=== PATIENT | female | born 1965 | race Native Hawaiian/Other Pacific Islander ===

== ENCOUNTER 2017-01-11 11:21 | Day surgery (SDC) | payer OTHER ==
[~2017-01-11] VITALS: Ht 30.5 cm; Wt 0.5 kg
[~2017-01-11 11:21] MED LIST: CORRECTOL100 MG OR; DULO60CA2 OR; FURO20TA67 PO; GABA300C2 PO; LISI20TA24 PO; LORCET HD 10-321 TAB PO; MELOXICAM15 MG OR; MULT VITAMI1 OR; TIZA4TAB5 PO; TRAM50TA PO; TRAZ100T OR
== END 2017-01-11 14:00 | disposition home or self-care (01) ==
LOC: OR 11:21
PROC: 0DB88ZZ Excision of Small Intestine, Via Natural or Artificial Opening Endoscopic (ICD-10-PCS; principal; 2017-01-11)
PROC: 0DB18ZZ Excision of Upper Esophagus, Via Natural or Artificial Opening Endoscopic (ICD-10-PCS; 2017-01-11)
PROC: 0DB68ZZ Excision of Stomach, Via Natural or Artificial Opening Endoscopic (ICD-10-PCS; 2017-01-11)
PROC: 0D758ZZ Dilation of Esophagus, Via Natural or Artificial Opening Endoscopic (ICD-10-PCS; 2017-01-11)
DX: K22.4 Dyskinesia of esophagus (principal); K21.0 Gastro-esophageal reflux disease with esophagitis; K22.2 Esophageal obstruction; K29.50 Unspecified chronic gastritis without bleeding; R13.19 Other dysphagia; R10.13 Epigastric pain; R14.3 Flatulence; R14.0 Abdominal distension (gaseous)
CPT/HCPCS: J2001; J2704

== ENCOUNTER 2017-04-10 13:47 | Outpatient (CLI) | payer OTHER | END 2017-04-10 14:50 | disposition home or self-care (01) | LOC: MRI 13:47 | DX: M54.2 Cervicalgia (principal); R20.0 Anesthesia of skin ==

== ENCOUNTER 2017-04-27 13:46 | Outpatient (CLI) | payer OTHER | END 2017-04-27 19:18 | disposition home or self-care (01) | LOC: MRI 13:46 | DX: M54.17 Radiculopathy, lumbosacral region (principal) ==

== ENCOUNTER 2017-07-18 09:39 | Outpatient (CLI) | payer OTHER | END 2017-07-18 19:03 | disposition home or self-care (01) | LOC: MAMMO 09:39 | DX: Z12.31 Encounter for screening mammogram for malignant neoplasm of breast (principal) ==

== ENCOUNTER 2017-08-19 18:37 | Emergency (ER) | payer OTHER ==
[~2017-08-19] VITALS: Ht 154.9 cm; Wt 121.6 kg
[2017-08-19 20:08] VITALS: BP 129/73; TEMP 97.9
== END 2017-08-19 20:10 | disposition home or self-care (01) ==
LOC: ED 18:37
DX: S00.83XA Contusion of other part of head, initial encounter (principal); W01.198A Fall on same level from slipping, tripping and stumbling with subsequent striking against other object, initial encounter; Y92.098 Other place in other non-institutional residence as the place of occurrence of the external cause
CPT/HCPCS: 96372; 99283; J1885

== ENCOUNTER 2017-11-12 16:55 | Emergency (ER) | payer OTHER ==
[~2017-11-12] VITALS: Ht 154.9 cm; Wt 122.5 kg
[2017-11-12] MEDS ORDERED: SIMV20TA2 PO (17:13)
[2017-11-12] MEDS ORDERED: PROZAC10 MG PO (17:14)
[2017-11-12] MEDS ORDERED: PANTOPRAZOLE 40MG TA PO (17:14)
[2017-11-12] MEDS ORDERED: XYZAL5 MG PO (17:15)
[2017-11-12] MEDS ORDERED: TRAZ100T PO (17:16)
[2017-11-12] MEDS ORDERED: TOVIAZ 8MG8 MG PO (17:18)
[2017-11-12] MEDS ORDERED: FLONASE AL50 MCG/ACT (17:20)
[2017-11-12] MEDS ORDERED: ALBUTEROL0.083 % IN (17:22)
[2017-11-12 19:35] VITALS: BP 131/83; TEMP 99
== END 2017-11-12 19:36 | disposition home or self-care (01) ==
LOC: ED 16:55
DX: T62.91XA Toxic effect of unspecified noxious substance eaten as food, accidental (unintentional), initial encounter (principal)
CPT/HCPCS: 96372; 99282; J2550

== ENCOUNTER 2017-12-19 09:04 | Outpatient (CLI) | payer OTHER ==
[~2017-12-19 09:04] MED LIST changes: +ALBUTEROL0.083 % IN; +FLONASE AL50 MCG/ACT; +PANTOPRAZOLE 40MG TA PO; +PROZAC10 MG PO; +SIMV20TA2 PO; +TOVIAZ 8MG8 MG PO; +TRAZ100T PO; +XYZAL5 MG PO
== END 2017-12-19 19:59 | disposition home or self-care (01) ==
LOC: CT 09:04
DX: K43.9 Ventral hernia without obstruction or gangrene (principal)
CPT/HCPCS: 36415; 82565; 84520; Q9963

== ENCOUNTER 2018-03-07 11:56 | Day surgery (SDC) | payer OTHER ==
[2018-03-07 12:23] LABS: PLATELET COUNT 392 K/uL (152-353)
[2018-03-07 12:37] LABS: POTASSIUM 3.7 mmol/L (3.6-5.2)
== END 2018-03-07 14:24 | disposition home or self-care (01) ==
LOC: OR 11:56
PROVIDERS: Internal Medicine Gastroenterology
PROC: 0DB68ZZ Excision of Stomach, Via Natural or Artificial Opening Endoscopic (ICD-10-PCS; principal; 2018-03-07)
PROC: 0DB88ZZ Excision of Small Intestine, Via Natural or Artificial Opening Endoscopic (ICD-10-PCS; 2018-03-07)
PROC: 0D758ZZ Dilation of Esophagus, Via Natural or Artificial Opening Endoscopic (ICD-10-PCS; 2018-03-07)
DX: K25.9 Gastric ulcer, unspecified as acute or chronic, without hemorrhage or perforation (principal); K29.70 Gastritis, unspecified, without bleeding; K21.0 Gastro-esophageal reflux disease with esophagitis; K22.4 Dyskinesia of esophagus; K22.2 Esophageal obstruction; R13.19 Other dysphagia; R10.13 Epigastric pain; R11.2 Nausea with vomiting, unspecified; R63.4 Abnormal weight loss
CPT/HCPCS: 80053; 85027; J2001; J2250; J2704

== ENCOUNTER 2018-07-25 10:15 | Outpatient (CLI) | payer OTHER | END 2018-07-25 19:19 | disposition home or self-care (01) | LOC: MAMMO 10:15 | DX: Z12.31 Encounter for screening mammogram for malignant neoplasm of breast (principal) ==

== ENCOUNTER 2018-08-07 08:58 | Outpatient (CLI) | payer OTHER | END 2018-08-07 21:19 | disposition home or self-care (01) | LOC: MAMMO 08:58 | DX: N64.59 Other signs and symptoms in breast (principal) ==

== ENCOUNTER 2018-10-11 09:51 | Outpatient (CLI) | payer OTHER | END 2018-10-11 22:31 | disposition home or self-care (01) | LOC: MRI 09:51 | DX: M54.12 Radiculopathy, cervical region (principal) ==

== ENCOUNTER 2018-10-26 15:56 | Outpatient (CLI) | payer OTHER | END 2018-10-26 20:28 | disposition home or self-care (01) | LOC: LABW 15:56 | DX: K64.0 First degree hemorrhoids (principal) | CPT/HCPCS: 82272 ==

== ENCOUNTER 2018-11-14 11:25 | Day surgery (SDC) | payer OTHER ==
[2018-11-14 12:00] LABS: PLATELET COUNT 289 K/uL (152-353)
[2018-11-14 12:13] LABS: POTASSIUM 3.2 mmol/L (3.6-5.2)
== END 2018-11-14 13:52 | disposition home or self-care (01) ==
LOC: OR 11:25
PROVIDERS: Internal Medicine Gastroenterology
PROC: 0DB68ZZ Excision of Stomach, Via Natural or Artificial Opening Endoscopic (ICD-10-PCS; principal; 2018-11-14)
PROC: 0DB88ZZ Excision of Small Intestine, Via Natural or Artificial Opening Endoscopic (ICD-10-PCS; 2018-11-14)
PROC: 0D738ZZ Dilation of Lower Esophagus, Via Natural or Artificial Opening Endoscopic (ICD-10-PCS; 2018-11-14)
DX: K29.80 Duodenitis without bleeding (principal); K22.4 Dyskinesia of esophagus; K22.2 Esophageal obstruction; K29.50 Unspecified chronic gastritis without bleeding; R13.19 Other dysphagia; R10.13 Epigastric pain; R11.0 Nausea; K21.0 Gastro-esophageal reflux disease with esophagitis; Z87.11 Personal history of peptic ulcer disease
CPT/HCPCS: 80053; 85027; J2001; J2250; J2405; J2704

== ENCOUNTER 2019-03-25 15:12 | Outpatient (CLI) | payer OTHER | END 2019-03-25 19:42 | disposition home or self-care (01) | LOC: LABW 15:12 | DX: Z01.810 Encounter for preprocedural cardiovascular examination (principal); Z01.812 Encounter for preprocedural laboratory examination; Z68.39 Body mass index [BMI] 39.0-39.9, adult | CPT/HCPCS: 36415; 85651 ==

== ENCOUNTER 2019-05-30 09:26 | Outpatient (CLI) | payer OTHER | END 2019-05-30 20:27 | disposition home or self-care (01) | LOC: LABW 09:26 → LAB 09:26 | DX: K64.0 First degree hemorrhoids (principal) | CPT/HCPCS: 82272 ==

== ENCOUNTER 2019-07-30 11:27 | Outpatient (CLI) | payer OTHER | END 2019-07-30 19:02 | disposition home or self-care (01) | LOC: MAMMO 11:27 | DX: Z12.31 Encounter for screening mammogram for malignant neoplasm of breast (principal) ==

== ENCOUNTER 2020-08-03 15:26 | Outpatient (CLI) | payer OTHER | END 2020-08-03 20:22 | disposition home or self-care (01) | LOC: MAMMO 15:26 | DX: Z12.31 Encounter for screening mammogram for malignant neoplasm of breast (principal) ==

== ENCOUNTER 2021-02-26 11:34 | Outpatient (CLI) | payer OTHER | END 2021-02-26 22:20 | disposition home or self-care (01) | LOC: LABW 11:34 | PROVIDERS: ATTEND Internal Medicine Gastroenterology | DX: Z86.010 Personal history of colon polyps (principal) | CPT/HCPCS: 82272 ==

== ENCOUNTER 2021-05-11 18:24 | Emergency (ER) | payer OTHER ==
[~2021-05-11] VITALS: Ht 154.9 cm; Wt 111.1 kg
[2021-05-11 19:59] VITALS: BP 172/80; TEMP 97.1
== END 2021-05-11 19:59 | disposition home or self-care (01) ==
LOC: ED 18:24
PROC: 0H9QXZZ Drainage of Finger Nail, External Approach (ICD-10-PCS; principal; 2021-05-11)
DX: L03.011 Cellulitis of right finger (principal)
CPT/HCPCS: 96372; 99283; J0696; J1885

== ENCOUNTER 2021-08-06 09:58 | Outpatient (CLI) | payer OTHER | END 2021-08-06 21:02 | disposition home or self-care (01) | LOC: MAMMO 09:58 | PROVIDERS: ATTEND Internal Medicine | DX: Z12.31 Encounter for screening mammogram for malignant neoplasm of breast (principal) ==

== ENCOUNTER 2022-03-16 15:06 | Emergency (ER) | payer OTHER ==
[~2022-03-16] VITALS: Ht 154.9 cm; Wt 111.1 kg
[2022-03-16 15:14] VITALS: BP 153/79; TEMP 97.5
[2022-03-16 16:12] LABS: POTASSIUM 3.1 mmol/L (3.6-5.2)
[2022-03-16 16:14] LABS: PLATELET COUNT 260 K/uL (152-353)
== END 2022-03-16 18:18 | disposition home or self-care (01) ==
LOC: ED 15:06
PROVIDERS: Emergency Medicine Emergency Medical Services
DX: R10.11 Right upper quadrant pain (principal); N28.89 Other specified disorders of kidney and ureter
CPT/HCPCS: 36415; 80048; 81000; 85027; 96360; 96375; 99284; J1885; J2405

== ENCOUNTER 2022-04-06 09:20 | Outpatient (CLI) | payer OTHER | END 2022-04-06 18:54 | disposition home or self-care (01) | LOC: US 09:20 | PROVIDERS: ATTEND Specialist | DX: N28.89 Other specified disorders of kidney and ureter (principal) ==

== ENCOUNTER 2022-07-28 09:23 | Outpatient (CLI) | payer OTHER | END 2022-07-28 19:12 | disposition home or self-care (01) | LOC: US 09:23 | PROVIDERS: ATTEND Specialist | DX: N28.89 Other specified disorders of kidney and ureter (principal) ==

== ENCOUNTER 2022-08-08 09:56 | Outpatient (CLI) | payer OTHER | END 2022-08-08 19:33 | disposition home or self-care (01) | LOC: MAMMO 09:56 | PROVIDERS: ATTEND Nurse Practitioner Family | DX: Z12.31 Encounter for screening mammogram for malignant neoplasm of breast (principal) ==

== ENCOUNTER 2022-12-08 09:44 | Emergency (ER) | payer OTHER ==
[~2022-12-08] VITALS: Ht 154.9 cm; Wt 117.9 kg
[2022-12-08 10:19] LABS: PLATELET COUNT 300 K/uL (152-353)
[2022-12-08 10:20] LABS: POTASSIUM 3.3 mmol/L (3.6-5.2)
[2022-12-08 10:57] LABS: PARTIAL THROMBOPLASTIN TIME 28.8 SECONDS (24.5-33.6)
[2022-12-08 12:22] VITALS: BP 108/52; TEMP 98.7
== END 2022-12-08 12:23 | disposition home or self-care (01) ==
LOC: ED 09:44
PROVIDERS: Emergency Medicine
DX: R07.89 Other chest pain (principal)
CPT/HCPCS: 36415; 80053; 82550; 84484; 85027; 85610; 85730; 93005; 96374; 96375; 99284; J2270; J2405

== ENCOUNTER 2023-03-01 12:57 | Outpatient (CLI) | payer OTHER | END 2023-03-01 19:08 | disposition home or self-care (01) | LOC: RESP 12:57 | PROVIDERS: ATTEND Internal Medicine | DX: R42 Dizziness and giddiness (principal); R06.02 Shortness of breath; I51.7 Cardiomegaly; R07.89 Other chest pain; E66.9 Obesity, unspecified; G47.33 Obstructive sleep apnea (adult) (pediatric) ==

== ENCOUNTER 2023-03-07 07:51 | Outpatient (CLI) | payer OTHER ==
[~2023-03-07] VITALS: Ht 154.9 cm; Wt 115.2 kg
== END 2023-03-07 17:00 | disposition home or self-care (01) ==
LOC: NM 07:51
PROVIDERS: ATTEND Internal Medicine
DX: R42 Dizziness and giddiness (principal); R06.02 Shortness of breath; I51.7 Cardiomegaly; R07.89 Other chest pain; E66.9 Obesity, unspecified; G47.33 Obstructive sleep apnea (adult) (pediatric)
CPT/HCPCS: A9500; J2785

== ENCOUNTER 2023-07-30 16:31 | Outpatient (CLI) | payer OTHER | END 2023-07-30 19:40 | disposition home or self-care (01) | LOC: RAD 16:31 | PROVIDERS: ATTEND Nurse Practitioner | DX: M54.12 Radiculopathy, cervical region (principal) ==